=== PATIENT | male | born 1950 | race Caucasian/White ===

== ENCOUNTER → 2018-12-17 13:43 | Outpatient (CLI) | payer OTHER, SELFPAY ==
--- NOTE | 2018-12-17 | DI.CT.S_ITS ---
PROCEDURE: CT KIDNEY URETER BLADDER (KUB) INDICATIONS: ACUTE RIGHT FLANK PAIN TECHNIQUE: Noncontrast 5 mm thick sections acquired from the diaphragms to the symphysis. 5 mm thick coronal and sagittal reformats were then performed. For radiation dose reduction, the following was used: automated exposure control, adjustment of mA and/or kV according to patient size. COMPARISON: None. FINDINGS: Image quality: Excellent. Lung bases: Lung bases are clear. Heart size is normal. Urinary system: The superior pole the right kidney is atrophic. The inferior pole demonstrates normal cortical thickness. There is severe upper pole right hydronephrosis and a dilated extrarenal pelvis. The right ureter demonstrates normal course and caliber. No ureteral calculi. No right perinephric fat stranding. No nephrolithiasis. The left kidney demonstrates normal size. No perinephric fat stranding. No nephrolithiasis or hydronephrosis. No hydroureter or ureterolithiasis. The bladder is thin-walled and fluid filled. No bladder calculi. Punctate calcifications are present within the prostate. There are scattered phleboliths in the pelvis. Other solid organs: Liver is normal in size. Gallbladder is contracted. Pancreas is normal in contours. Spleen is normal in size. No adrenal nodules. Peritoneum and bowel: Unenhanced bowel loops demonstrate normal wall thickness and caliber. The appendix is thin walled and gas filled. No free fluid or air. Nodes and vessels: No retroperitoneal or mesenteric adenopathy by size criteria. Aorta and inferior vena cava are normal in caliber. There is scattered atheromatous calcifications throughout the abdominal aorta. Abdominal wall: No ventral hernias. Pelvis: No free pelvic fluid. No inguinal hernias or adenopathy. Bones: No suspicious bony lesions. Mild degenerative changes present throughout the thoracolumbar spine. No vertebral body compression fractures. IMPRESSION: 1. 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 These findings suggest chronic, partial ureteropelvic obstruction. There is no nephrolithiasis or ureterolithiasis. 2. No acute intra-abdominal findings. Normal appendix. Dictated by: Jacque Cali M.D. on 12/17/2018 at 14:44 Approved by: Jacque Cali M.D. on 12/17/2018 at 15:01
== END ==
PROVIDERS: PCP Family Medicine; Visit Provider Nurse Practitioner Family
DX: R10.9 Unspecified abdominal pain (principal); N26.1 Atrophy of kidney (terminal); N13.30 Unspecified hydronephrosis
CPT/HCPCS: 74176

== ENCOUNTER 2020-01-12 07:57 | Day surgery (SDC) | payer MEDICARE, SELFPAY ==
[2020-01-12] MEDS: PROPARACAINE 0.5% OPHTH SOL 2 DROPS EYE-OP (08:51)
[2020-01-12 08:55] VITALS: BMI 26.2
[2020-01-12] MEDS: CATARACT EYE COMPOUND (10 DROPS/SYRINGE) 3 DROPS EYE-OP (08:59)
[2020-01-12 09:00] VITALS: BP 136/70; PULSE 54; RESP 12; TEMP 36.6; O2SAT 99
--- NOTE | 2020-01-12 09:19 | PM.PREOP ---
Pre-operative Note Interval Note History & Physical reviewed/Exam performed by Physician: Yes Changes to H&P: No
[2020-01-12] MEDS: TETRACAINE 0.5% OPHTH DROPS 4 ML 2 DROPS EYE-OP (10:08)
[2020-01-12] MEDS: MOXIFLOXACIN INJ 5 MG/ML VIAL EYE-OP (10:22)
[2020-01-12] MEDS: CHONDROIDTIN/SOD HYALURONATE 1.05 ML SYRINGE INTRAOCULA (10:22)
[2020-01-12] MEDS: BALANCED SALT IRRIG SOLN NO.2 15 ML 5 ML IRR (10:22)
[2020-01-12] MEDS: LIDOCAINE 2% INJ SDV 2 ML INJ (10:22)
[2020-01-12] MEDS: PHENYLEPHRINE/LIDOCAINE VIAL (OR) 0.2 ML EYE-OP (10:23)
[2020-01-12] MEDS: BALANCED SALT IRRIG SOLN NO.2 500 ML, EPINEPHrine 1 MG IRR (10:23)
--- NOTE | 2020-01-12 10:38 | PM.OP.1 ---
Procedure & Clinicians Procedure: Cataract extraction with intraocular lens implant, right. 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 The correct patient, surgical site and lens were confirmed. 0.5 % tetracaine drops were placed in the right eye. The patient was prepped and draped in the typical sterile manner. A lid speculum was placed in the eye. 2% lidocaine was placed on the eye. A paracentesis port was created with a side-port blade. 0.1 mL of 1% preservative free lidocaine with phenylephrine was injected into the anterior chamber. Viscoelastic was injected into the anterior chamber. A 2.6mm keratome was used to create a clear corneal temporal incision. Cystotome and Utrata forceps were used to create a continuous curvilinear capsulorrhexis. Balanced salt solution was used to hydrodissect the nucleus. Phacoemulsification was used to remove the lens. The capsular bag was inflated with viscoelastic. A Chandra ZCBOO +20.5D lens was inserted into the capsule. Viscoelastic was removed and the wound hydrated. The wound was found to be leak free and the eye was assessed to be at normal physiologic pressure. 0.1mL Moxifloxacin (5mg/mL) preservative free was injected into the anterior chamber. The lid speculum was removed and the patient left the operating room in excellent condition. Complications: none Post-operative Condition: stable Disposition: same day surgery
[2020-01-12 10:48] VITALS: BP 111/62; PULSE 47; RESP 12; TEMP 36.6; O2SAT 99
[2020-01-12 11:14] VITALS: BP 101/60; PULSE 47; RESP 16; TEMP 36.6; O2SAT 100
[2020-01-12 11:21] VITALS: BP 104/60; PULSE 51; RESP 14; TEMP 36.6; O2SAT 100
--- NOTE | 2020-01-12 11:22 | SUR.PHASEII ---
Patient awake, A\O x 4. Sitting up in bed drinking coffee. at bedside. States he feels fine. No c/o dizziness.
[2020-01-12 11:28] VITALS: BP 106/63; PULSE 50; RESP 12; O2SAT 99
== END 2020-01-12 11:42 | disposition home or self-care (01) ==
LOC: OR 07:59
PROVIDERS: PCP Family Medicine; Referring Provider Ophthalmology; Visit Provider Ophthalmology
PROC: (CPT 66984; principal; 2020-01-12 09:45)
DX: H25.11 Age-related nuclear cataract, right eye (principal)
CPT/HCPCS: 66984; J0171; J2250; J3010

== ENCOUNTER → 2022-05-18 16:06 | Outpatient (CLI) | payer MEDICARE, SELFPAY | PROVIDERS: PCP Family Medicine; Visit Provider Physician Assistant | DX: R30.0 Dysuria (principal) | CPT/HCPCS: 87086 ==